=== PATIENT | male | born 1975 | race American Indian/Alaskan Native ===

== ENCOUNTER 2021-01-27 10:10 | Emergency (ER) | payer OTHER ==
[~2021-01-27] VITALS: Ht 180.3 cm; Wt 102.1 kg
[2021-01-27] MEDS ORDERED: HYDROCODON-ACE1 EA10 PO (12:03)
== END 2021-01-27 12:18 | disposition home or self-care (01) ==
LOC: ED 10:10
DX: S22.42XA Multiple fractures of ribs, left side, initial encounter for closed fracture (principal); F10.10 Alcohol abuse, uncomplicated; W01.10XA Fall on same level from slipping, tripping and stumbling with subsequent striking against unspecified object, initial encounter
CPT/HCPCS: 71046; 74177; 80053; 83690; 85025; 96374; 99284-25; G0480; J2270; Q9967

== ENCOUNTER 2022-04-26 22:00 | Emergency (ER) | payer SELFPAY ==
[~2022-04-26] VITALS: Ht 180.3 cm; Wt 99.8 kg
[~2022-04-26 22:00] MED LIST: HYDROCODON-ACE1 EA10 PO
== END 2022-04-26 23:42 | disposition home or self-care (01) ==
LOC: ED 22:00
DX: R51.9 Headache, unspecified (principal)
CPT/HCPCS: 36415; 70450; 80053; 85025; 96374; 99284-25; J1885; J7030